=== PATIENT | female | born 1940 | race Caucasian/White ===

== ENCOUNTER 2017-11-09 10:59 | Emergency (ER) | payer MEDICARE ==
[~2017-11-09] VITALS: Ht 162.6 cm; Wt 77.3 kg
[2017-11-09 11:07] VITALS: Ht 162.6 cm; Wt 77.3 kg
[2017-11-09] MEDS ORDERED: XARELTO20 MG PO (11:10)
[2017-11-09] MEDS ORDERED: HYDROCHLOROTHIA25 MG PO (11:10)
[2017-11-09] MEDS ORDERED: PRAVACHOL20 MG PO (11:11)
[2017-11-09] MEDS ORDERED: TENORMIN50 MG PO (11:11)
[2017-11-09] MEDS ORDERED: PRINIVIL20 MG (11:11)
[2017-11-09] MEDS ORDERED: GLUCOPHAGE XR750 MG PO (11:12)
[2017-11-09] MEDS ORDERED: PEPCID AC20 MG PO (11:13)
[2017-11-09] MEDS ORDERED: CATAPRES0.1 MG PO (11:13)
[2017-11-09 11:28] LABS: BASOPHILS 0.5 % (0-2); EOSINOPHILS 1.9 % (0-7); HEMOGLOBIN 12.5 g/dL (12-16); IMMATURE GRANULOCYTES 0.3 % (0-5); MCHC 31.3 g/dL (31.0-37.0); MCV 83.2 fL (80.0-100.0); MEAN PLATELET VOLUME 10.6 fL (7.4-10.4); MONOCYTES 9.9 % (2-11); NEUTROPHILS 69.4 % (40-80); PLATELET COUNT 222 10x3/uL (130-400); RBC 4.81 10x6/uL (4.00-5.40); RDW 18.4 % (11.5-14.5); WBC 6.4 10x3/uL (4.8-10.8)
[2017-11-09 11:41] LABS: INR 1.7 (0.85-1.17); PROTIME 19.5 SECONDS (11.6-15.0)
[2017-11-09 11:44] LABS: ALBUMIN 3.7 g/dL (3.4-5.0); ALKALINE PHOSPHATASE 65 U/L (46-116); ALT (SGPT) 26 U/L (10-68); CALC OSMOLALITY 272 mosm/kg (275-300); CALCIUM 9.7 mg/dL (8.5-10.1); CARBON DIOXIDE 33.2 mmol/L (21.0-32.0); CHLORIDE - SERUM 99 mmol/L (98-107); CREATININE - SERUM 0.6 mg/dL (0.6-1.3); GLUCOSE 92 mg/dL (74-106); POTASSIUM - SERUM 3.8 mmol/L (3.5-5.1); PROTEIN - SERUM 7.5 g/dL (6.4-8.2); SODIUM 137 mmol/L (136-145); UREA NITROGEN 10 mg/dL (7-18); eGFR NON AFRICAN AMERICAN > 90 mL/min (90-120)
[2017-11-09 11:55] LABS: CREATINE KINASE 44 UL (21-215)
[2017-11-09 11:56] LABS: TROPONIN-I < 0.017 ng/mL (0.000-0.060)
[2017-11-09 12:06] LABS: UDS - AMPHET NEGATIVE QUAL (NEGATIVE); UDS - BARB NEGATIVE QUAL (NEGATIVE); UDS - BENZO NEGATIVE QUAL (NEGATIVE); UDS - COCAINE NEGATIVE QUAL (NEGATIVE); UDS - OPIATE NEGATIVE QUAL (NEGATIVE); UDS - PCP NEGATIVE QUAL (NEGATIVE); UDS - THC NEGATIVE QUAL (NEGATIVE)
[2017-11-09 13:54] LABS: APPEARANCE CLEAR (CLEAR); BILIRUBIN NEGATIVE (NEGATIVE); COLOR YELLOW (YELLOW); GLUCOSE NEGATIVE (NEGATIVE); KETONE NEGATIVE (NEGATIVE); NITRITE NEGATIVE (NEGATIVE); PROTEIN NEGATIVE (NEGATIVE); UROBILINOGEN NORMAL (NORMAL)
[2017-11-09 14:44] VITALS: BP 163/83
== END 2017-11-09 14:44 | disposition home or self-care (01) ==
LOC: D.ER 10:59
PROVIDERS: Family Medicine
DX: G45.9 Transient cerebral ischemic attack, unspecified (principal); I45.10 Unspecified right bundle-branch block; I10 Essential (primary) hypertension